=== PATIENT | male | born 1990 | race Caucasian/White ===

== ENCOUNTER → 2023-05-31 | Outpatient (REF) | payer OTHER ==
[~2023-05-31] MED LIST: INSUHUMDS SC
== END ==
LOC: M LABSMT 09:56
PROVIDERS: ATTEND Urology
DX: Z30.2 Encounter for sterilization (principal)

== ENCOUNTER → 2023-08-14 | Outpatient (REF) | payer OTHER | LOC: M SMT 09:48 | PROVIDERS: ATTEND Urology | DX: Z30.2 Encounter for sterilization (principal) ==

== ENCOUNTER → 2023-08-17 | Outpatient (REF) | payer OTHER ==
[2023-08-17 09:48] LABS: SEMEN APPEARANCE OPAQUE (OPAQUE); SEMEN VISCOSITY LIQUID (LIQUID); SEMEN VOLUME 1.2 ml (2.0-5.0); WBC CONCENTRATION <=1 M/ml (<=1 M/ml)
== END ==
LOC: M SMT 09:15
PROVIDERS: ATTEND Urology
DX: Z30.2 Encounter for sterilization (principal)

== ENCOUNTER 2025-04-28 08:19 | Day surgery (SDC) | payer OTHER ==
[~2025-04-28] VITALS: Ht 175.3 cm; Wt 86.9 kg
[~2025-04-28 08:19] MED LIST changes: +PANT20TA6 PO
[2025-04-28] MEDS ORDERED: LIDOCAINE 2% 100 MG/5 ML SDV (FOR ANES.) As Ordered ONE (09:32)
[2025-04-28 10:06] VITALS: BP 117/73; O2SAT 97
== END 2025-04-28 10:07 | disposition home or self-care (01) ==
LOC: M OPP 08:19
PROVIDERS: ATTEND Internal Medicine Gastroenterology
DX: K44.9 Diaphragmatic hernia without obstruction or gangrene (principal); K22.89 Other specified disease of esophagus; R13.10 Dysphagia, unspecified; R12 Heartburn; Z88.0 Allergy status to penicillin; Z88.1 Allergy status to other antibiotic agents; Z79.4 Long term (current) use of insulin; Z79.899 Other long term (current) drug therapy
CPT/HCPCS: 43249; 88305; A4649; J3010